=== PATIENT | female | born 1995 | race African-American/Black ===

== ENCOUNTER 2016-11-28 18:12 | Observation (INO) | payer MEDICAID | END 2016-11-28 19:10 | disposition home or self-care (01) | DRG 566 | LOC: LDRP 18:12 | PROVIDERS: ADMIT Obstetrics & Gynecology; ATTEND Obstetrics & Gynecology | DX: O26.893 Other specified pregnancy related conditions, third trimester (principal); N93.0 Postcoital and contact bleeding; Z3A.39 39 weeks gestation of pregnancy | CPT/HCPCS: 59025; 81002; G0378 ==

== ENCOUNTER 2016-12-09 11:09 | Emergency (ER) | payer MEDICAID ==
[~2016-12-09] VITALS: Ht 160 cm; Wt 77.1 kg
[2016-12-09 12:01] VITALS: BP 137/98
== END 2016-12-09 12:34 | disposition home or self-care (01) ==
LOC: ER 11:09
DX: T81.9XXA Unspecified complication of procedure, initial encounter (principal); R53.1 Weakness; R06.02 Shortness of breath; R47.81 Slurred speech
CPT/HCPCS: 70450